=== PATIENT | male | born 1960 ===

== ENCOUNTER → 2020-12-18 | Day surgery (SDC) | payer OTHER ==
[~2020-12-18] VITALS: Ht 177.8 cm; Wt 149.7 kg
[~2020-12-18] MED LIST: ATARAX25 MG PO; CBD OIL PO; HCTZ25 MG PO; NORVASC5 MG PO; PRAVACHOL20 MG PO; TENORMIN50 M1 PO; UROCIT-K10 MEQ PO; VITAMIN D3125 MC1 PO; VOLTAREN **OUT50 MG PO
[2020-12-18 11:32] LABS: BASOPHIL 0.5 % (0-2); EOSINOPHIL 4.5 % (0-5); HCT 46.5 % (42.0-52.0); HGB 15.5 g/dl (13.2-18.0); LYMPHOCYTE 20.1 % (15-48); MCH 29.2 pg (25.0-31.0); MCHC 33.3 g/dL (32.0-36.0); MCV 87.6 fL (78.0-100.0); MONOCYTE 10.6 % (0-12); MPV 10.2 fL (6.0-9.5); NEUTROPHIL 64.1 % (41-80); NRBC 0; PLT 236 K/uL (150-400); RBC 5.31 M/uL (4.70-6.00); RDW 13.6 % (11.5-14.0)
[2020-12-18 11:35] LABS: BUN/CREAT RATIO (CALC) 25.9 RATIO; CREATININE 0.85 mg/dL (0.67-1.17); POTASSIUM 3.7 mmol/L (3.5-5.1)
== END | disposition home or self-care (01) ==
LOC: FAS 10:34
PROVIDERS: Anesthesiology; Legal Medicine
DX: S83.242A Other tear of medial meniscus, current injury, left knee, initial encounter (principal); S83.282A Other tear of lateral meniscus, current injury, left knee, initial encounter; M19.90 Unspecified osteoarthritis, unspecified site; Z88.0 Allergy status to penicillin; Z88.5 Allergy status to narcotic agent; Z90.89 Acquired absence of other organs
CPT/HCPCS: 36415; 80048; 85025; 93005; J1100; J1885; J2250; J2274; J2405; J2704; J3010; J7120